=== PATIENT | female | born 1950 | race African-American/Black ===

== ENCOUNTER 2018-02-24 21:05 | Emergency (ER) | payer BC, OTHER ==
[~2018-02-24] VITALS: Ht 157.5 cm; Wt 69.4 kg
== END 2018-02-24 23:37 | disposition home or self-care (01) ==
LOC: ER 21:05 → EDBD 21:15 → ER 21:15
DX: R06.02 Shortness of breath (principal); M62.838 Other muscle spasm

== ENCOUNTER 2018-11-14 16:54 | Emergency (ER) | payer OTHER, BC ==
[~2018-11-14] VITALS: Ht 162.6 cm; Wt 59.0 kg
== END 2018-11-14 17:37 | disposition home or self-care (01) ==
LOC: ER 16:54
DX: R00.2 Palpitations (principal); F06.4 Anxiety disorder due to known physiological condition